=== PATIENT | male | born 1995 | race African-American/Black ===

== ENCOUNTER → 2018-04-22 | Emergency (ER) | payer MEDICAID ==
[~2018-04-22] MED LIST: Cephalexin 500 MG CAP ONE; Sulfameth/Trimethoprim DS 800-160mg TAB ONE
== END ==
LOC: MADERS 14:40
DX: L73.9 Follicular disorder, unspecified (principal)
CPT/HCPCS: 99283

== ENCOUNTER 2018-12-14 17:19 | Emergency (ER) | payer SELFPAY ==
[2018-12-14] MEDS ORDERED: Bacitracin 1 PK ONE (17:35)
[2018-12-14] MEDS ORDERED: Lidocaine 1% 20 ML MDV ONE (17:36)
[2018-12-14] MEDS ORDERED: Cephalexin 500 MG CAP ONE (17:59)
== END 2018-12-14 18:22 | disposition home or self-care (01) ==
LOC: MADERS 17:19
DX: S61.213A Laceration without foreign body of left middle finger without damage to nail, initial encounter (principal); W45.8XXA Other foreign body or object entering through skin, initial encounter
CPT/HCPCS: 12001; J2001